=== PATIENT | female | born 1975 | race African-American/Black ===

== ENCOUNTER 2019-01-07 21:18 | Emergency (ER) | payer BC ==
[~2019-01-07] VITALS: Ht 160 cm; Wt 93.9 kg
[2019-01-07 21:52] LABS: BASO % 1 % (0-3); EOS # 0.1 x10^3/uL (0.0-0.7); EOS % 2 % (0-3); HEMATOCRIT 41.3 % (36.0-47.0); HEMOGLOBIN 14.4 g/dL (12.0-15.5); LYMPH # 1.4 x10^3/uL (1.0-4.8); LYMPH % 32 % (24-48); MEAN CORPUSCULAR HEMOGLOBIN 31 pg (25-35); MEAN CORPUSCULAR HGB CONC 35 g/dL (31-37); MEAN CORPUSCULAR VOLUME 87 fL (79-100); MONO # 0.3 x10^3/uL (0.0-1.1); MONO % 6 % (0-9); NEUT # 2.6 x10^3/uL (1.8-7.7); NEUT % 59 % (31-73); PLATELET COUNT 306 x10^3/uL (140-400); RED BLOOD COUNT 4.74 x10^6/uL (3.50-5.40); RED CELL DISTRIBUTION WIDTH 13.6 % (11.5-14.5); WHITE BLOOD COUNT 4.4 x10^3/uL (4.0-11.0)
[2019-01-07] MEDS ORDERED: diphenhydrAMINE 50 MG/ML VIAL IVP ONE (22:00)
[2019-01-07] MEDS ORDERED: IV NORMAL SALINE 1000ML BAG 1,000 ML IV ONE (22:00)
[2019-01-07] MEDS ORDERED: DEXAMETHASONE SOD PHOS 20 MG/5 ML VIAL. IV ONE (22:00)
[2019-01-07] MEDS ORDERED: METOCLOPRAMIDE HCL 10 MG/2 ML VIAL. IV ONE (22:00)
[2019-01-07] MEDS ORDERED: KETOROLAC 15 MG/ML VIAL. IV ONE (22:00)
[2019-01-07 22:02] LABS: CALCIUM 9.3 mg/dL (8.5-10.1); CREATININE 0.9 mg/dL (0.6-1.0); POTASSIUM 3.8 mmol/L (3.5-5.1)
[2019-01-07 22:08] LABS: PROTHROMBIN TIME PATIENT 13.6 SEC (11.7-14.0)
[2019-01-07 22:09] LABS: ALBUMIN 4.1 g/dL (3.4-5.0); TOTAL BILIRUBIN 0.4 mg/dL (0.2-1.0); TOTAL PROTEIN 8.2 g/dL (6.4-8.2)
[2019-01-07] MEDS ORDERED: LABETALOL 20 MG/4 ML DISP.SYRIN. IVP ONE (22:15)
[2019-01-07 22:18] LABS: BILIRUBIN,URINE NEGATIVE (NEG); CLARITY,URINE CLEAR; COLOR,URINE YELLOW; NITRITE,URINE NEGATIVE (NEG); PH,URINE 7.5; PROTEIN,URINE NEGATIVE (NEG-TRACE); UROBILINOGEN,URINE 0.2 mg/dL (0.2 mg/dL)
--- NOTE | 2019-01-07 22:27 | RAD ---
CT brain without contrast. HISTORY: Headaches, hypertension, MS CT scan of brain was done without contrast. Comparison is made with a study from March 2013. Sinuses are clear. There is mild atrophy. There is no intracranial hemorrhage or subdural hematoma. There is no mass or shift of the midline. An acute CVA is not identified. There are no abnormal areas of increased or decreased attenuation. IMPRESSION: 1. No intracranial hemorrhage or acute finding noted. PQRS Compliance Statement: One or more of the following individualized dose reduction techniques were utilized for this examination: 1. Automated exposure control 2. Adjustment of the mA and/or kV according to patient size 3. Use of iterative reconstruction technique Electronically signed by: Blake Eastman MD (01/07/2019 10:23 PM) [facility]
[2019-01-07 22:42] LABS: BACTERIA,URINE FEW /HPF (0-FEW); RBC,URINE 0 /HPF (0-2); SQUAMOUS EPITHELIAL CELL,UR MOD /LPF; WBC,URINE 0 /HPF (0-4)
[2019-01-07] MEDS ORDERED: BUTA1TAB23 PO (22:52)
[2019-01-07] MEDS ORDERED: LISI-130 PO (22:52)
--- NOTE | 2019-01-07 22:53 | PHYS DOC ---
Past Medical History Past Medical History: Hypertension, Other Additional Past Medical Histor: MS Past Surgical History: , Hysterectomy, Tubal ligation Alcohol Use: None Drug Use: None Adult General Chief Complaint Chief Complaint: HEADACHE HPI HPI Patient is a 43 year old [f__sex] who presents with [] Review of Systems Review of Systems Constitutional: Denies fever or chills [] Eyes: Denies change in visual acuity, redness, or eye pain [] HENT: Denies nasal congestion or sore throat [] Respiratory: Denies cough or shortness of breath [] Cardiovascular: No additional information not addressed in HPI [] GI: Denies abdominal pain, nausea, vomiting, bloody stools or diarrhea [] : Denies dysuria or hematuria [] Musculoskeletal: Denies back pain or joint pain [] Integument: Denies rash or skin lesions [] Neurologic: Denies headache, focal weakness or sensory changes [] Endocrine: Denies polyuria or polydipsia [] All other systems were reviewed and found to be within normal limits, except as documented in this note. Current Medications Current Medications Current Medications Medications (Trade) Dose Ordered Sig/Dixie Start Time Stop Time Status Last Admin Dose Admin Clonidine HCl (Catapres) 0.1 mg 1X ONCE 01/07/19 23:15 01/07/19 23:16 DC 01/07/19 23:17 0.1 MG Dexamethasone Sodium Phosphate (Decadron) 10 mg 1X ONCE 01/07/19 22:00 01/07/19 22:01 DC 01/07/19 21:56 10 MG Diphenhydramine HCl (Benadryl) 50 mg 1X ONCE 01/07/19 22:00 01/07/19 22:01 DC 01/07/19 21:57 50 MG Ketorolac Tromethamine (Toradol 15mg Vial) 15 mg 1X ONCE 01/07/19 22:00 01/07/19 22:01 DC 01/07/19 21:54 15 MG Labetalol HCl (Normodyne Iv Push) 20 mg 1X ONCE 01/07/19 22:15 01/07/19 22:16 DC 01/07/19 22:24 20 MG Metoclopramide HCl (Reglan Vial) 10 mg 1X ONCE 01/07/19 22:00 01/07/19 22:01 DC 01/07/19 21:56 10 MG Sodium Chloride 1,000 ml @ 1,000 mls/hr 1X ONCE 01/07/19 22:00 01/07/19 22:59 DC 01/07/19 21:52 1,000 MLS/HR Allergies Allergies Allergies Coded Allergies Type Severity Reaction Last Updated Verified No Known Drug Allergies 01/07/19 No Physical Exam Physical Exam Constitutional: Well developed, well nourished, no acute distress, non-toxic appearance. [] HENT: Normocephalic, atraumatic, bilateral external ears normal, oropharynx moist, no oral exudates, nose normal. [] Eyes: PERRLA, EOMI, conjunctiva normal, no discharge. [] Neck: Normal range of motion, no tenderness, supple, no stridor. [] Cardiovascular:Heart rate regular rhythm, no murmur [] Lungs & Thorax: Bilateral breath sounds clear to auscultation [] Abdomen: Bowel sounds normal, soft, no tenderness, no masses, no pulsatile masses. [] Skin: Warm, dry, no erythema, no rash. [] Back: No tenderness, no CVA tenderness. [] Extremities: No tenderness, no cyanosis, no clubbing, ROM intact, no edema. [] Neurologic: Alert and oriented X 3, normal motor function, normal sensory function, no focal deficits noted. [] Psychologic: Affect normal, judgement normal, mood normal. [] Current Patient Data Vital Signs Vital Signs Date Time Temp Pulse Resp B/P (MAP) Pulse Ox O2 Delivery O2 Flow Rate FiO2 01/07/19 23:17 86 174/119 01/07/19 23:00 20 96 01/07/19 21:30 98.0 Room Air 98.0 Lab Values Laboratory Tests Test 01/07/19 21:35 01/07/19 22:05 White Blood Count 4.4 x10^3/uL (4.0-11.0) Red Blood Count 4.74 x10^6/uL (3.50-5.40) Hemoglobin 14.4 g/dL (12.0-15.5) Hematocrit 41.3 % (36.0-47.0) Mean Corpuscular Volume 87 fL (79-100) Mean Corpuscular Hemoglobin 31 pg (25-35) Mean Corpuscular Hemoglobin Concent 35 g/dL (31-37) Red Cell Distribution Width 13.6 % (11.5-14.5) Platelet Count 306 x10^3/uL (140-400) Neutrophils (%) (Auto) 59 % (31-73) Lymphocytes (%) (Auto) 32 % (24-48) Monocytes (%) (Auto) 6 % (0-9) Eosinophils (%) (Auto) 2 % (0-3) Basophils (%) (Auto) 1 % (0-3) Neutrophils # (Auto) 2.6 x10^3/uL (1.8-7.7) Lymphocytes # (Auto) 1.4 x10^3/uL (1.0-4.8) Monocytes # (Auto) 0.3 x10^3/uL (0.0-1.1) Eosinophils # (Auto) 0.1 x10^3/uL (0.0-0.7) Basophils # (Auto) 0.0 x10^3/uL (0.0-0.2) Prothrombin Time 13.6 SEC (11.7-14.0) Prothrombin Time INR 1.1 (0.8-1.1) PTT 28 SEC (24-38) Sodium Level 140 mmol/L (136-145) Potassium Level 3.8 mmol/L (3.5-5.1) Chloride Level 103 mmol/L (98-107) Carbon Dioxide Level 27 mmol/L (21-32) Anion Gap 10 (6-14) Blood Urea Nitrogen 10 mg/dL (7-20) Creatinine 0.9 mg/dL (0.6-1.0) Estimated GFR (Cockcroft-Gault) 69.0 BUN/Creatinine Ratio 11 (6-20) Glucose Level 123 mg/dL (70-99) H Calcium Level 9.3 mg/dL (8.5-10.1) Magnesium Level 2.0 mg/dL (1.8-2.4) Total Bilirubin 0.4 mg/dL (0.2-1.0) Aspartate Amino Transferase (AST) 18 U/L (15-37) Alanine Aminotransferase (ALT) 29 U/L (14-59) Alkaline Phosphatase 70 U/L (46-116) Creatine Kinase 266 U/L (26-192) H Creatine Kinase MB (Mass) 3.0 ng/mL (0.0-3.6) Creatine Kinase MB Relative Index 1.1 % (0-4) Troponin I Quantitative < 0.017 ng/mL (0.000-0.055) Total Protein 8.2 g/dL (6.4-8.2) Albumin 4.1 g/dL (3.4-5.0) Albumin/Globulin Ratio 1.0 (1.0-1.7) Lipase 129 U/L (73-393) Urine Collection Type Unknown Urine Color Yellow Urine Clarity Clear Urine pH 7.5 Urine Specific [place] 1.015 Urine Protein Negative mg/dL (NEG-TRACE) Urine Glucose (UA) Negative mg/dL (NEG) Urine Ketones (Stick) Negative mg/dL (NEG) Urine Blood Negative (NEG) Urine Nitrite Negative (NEG) Urine Bilirubin Negative (NEG) Urine Urobilinogen Dipstick 0.2 mg/dL (0.2 mg/dL) Urine Leukocyte Esterase Negative (NEG) Urine RBC 0 /HPF (0-2) Urine WBC 0 /HPF (0-4) Urine Squamous Epithelial Cells Mod /LPF Urine Bacteria Few /HPF (0-FEW) Laboratory Tests 01/07/19 21:35 Laboratory Tests 01/07/19 21:35 EKG EKG 01/07/19 at 2154: Normal sinus rhythm at [address] segment elevation. Prolonged ID interval at 224 ms. [] Radiology/Procedures Radiology/Procedures PROCEDURE: CT HEAD WO CONTRAST CT brain without contrast. HISTORY: Headaches, hypertension, MS CT scan of brain was done without contrast. Comparison is made with a study from March 2013. Sinuses are clear. There is mild atrophy. There is no intracranial hemorrhage or subdural hematoma. There is no mass or shift of the midline. An acute CVA is not identified. There are no abnormal areas of increased or decreased attenuation. IMPRESSION: 1. No intracranial hemorrhage or acute finding noted. PQRS Compliance Statement: One or more of the following individualized dose reduction techniques were utilized for this examination: 1. Automated exposure control 2. Adjustment of the mA and/or kV according to patient size 3. Use of iterative reconstruction technique Electronically signed by: Blake Eastman MD (01/07/2019 10:23 PM) [facility] Course & Med Decision Making Course & Med Decision Making Pertinent Labs and Imaging studies reviewed. (See chart for details) [] Dragon Disclaimer Dragon Disclaimer This electronic medical record was generated, in whole or in part, using a voice recognition dictation system. Departure Departure Impression: Primary Impression: Headache Additional Impressions: Hypertension Medication refill Disposition: 01 HOME, SELF-CARE Condition: STABLE Referrals: PETER MILLER MD (PCP) Patient Instructions: Headache, FAQs, Hypertension, [id number], Medication Refill, Emergency Department Scripts Clonidine Hcl (CLONIDINE HCL) 0.1 Mg Tablet 0.1 MG PO BID PRN for ELEVATED BP, SEE COMMENTS, #10 TAB Take for Systolic blood pressure greater than 185 and/or diastolic blood pressure greater than 110. Prov: CHIQUIS SANDHU DO 01/07/19 Butalb/Acetaminophen/Caffeine ([id number] 50-325-40) 1 Each Tablet 1 EACH PO Q6HRS PRN for HEADACHE, #14 TAB Prov: CHIQUIS SANDHU DO 01/07/19 Lisinopril (LISINOPRIL) 40 Mg Tablet 1 TAB PO DAILY, #14 TAB Prov: CHIQUIS SANDHU DO 01/07/19 Problem Qualifiers Primary Impression: Headache Headache type: unspecified Headache chronicity pattern: acute headache Intractability: not intractable Qualified Codes: R51 - Headache Additional Impressions: Hypertension Hypertension type: unspecified Qualified Codes: I10 - Essential (primary) hypertension CHIQUIS SANDHU DO Jan 07, 2019 22:53
[2019-01-07] MEDS ORDERED: CLON0.1T PO (23:05)
[2019-01-07] MEDS ORDERED: cloNIDine HCL 0.1 MG TABLET PO ONE (23:15)
[2019-01-07 23:17] VITALS: BP 174/119
--- NOTE | 2019-01-09 11:48 | EKG ---
[facility] [address] [place] [address] Test Date: 2019-01-07 Test Time: 21:54:45 Pat Name: VENANCIO ZEE SAMPLE Department: Room: Gender: F Press Tender: RAYNA : 1975 Requested By: CHIQUIS SANDHU Order Number: [id number] Reading MD: Measurements Intervals [place] Rate: 81 P: 0 VT: 224 QRS: 13 QRSD: 86 T: 9 QT: 378 QTc: 440 Interpretive Statements SINUS RHYTHM PROLONGED VT INTERVAL POSSIBLE LEFT ATRIAL ABNORMALITY ABNORMAL ECG RI6.01 No previous ECG available for comparison
== END 2019-01-07 23:25 | disposition home or self-care (01) ==
LOC: ER 21:18
DX: R51 Headache (principal); I10 Essential (primary) hypertension; Z98.890 Other specified postprocedural states; Z90.710 Acquired absence of both cervix and uterus; Z98.51 Tubal ligation status; Z76.0 Encounter for issue of repeat prescription
CPT/HCPCS: 36415; 70450; 80053; 81001; 82553; 83690; 83735; 84484; 85025; 85610; 85730; 93005; 96374; 96375; 99285; J1100; J1200; J1885; J2765; J3490; J7030